=== PATIENT | male | born 1985 | race Two or more races ===

== ENCOUNTER 2018-08-10 10:25 | Day surgery (SDC) | payer OTHER ==
[2018-08-10] MEDS ORDERED: MIDAZOLAM 1 MG/ML 2 ML INJ ×3 (11:37)
[2018-08-10] MEDS ORDERED: FENTAnyl 50 MCG/ML VIAL (11:37)
== END 2018-08-10 14:37 | disposition home or self-care (01) ==
LOC: GIL 10:25
DX: R19.7 Diarrhea, unspecified (principal); K64.8 Other hemorrhoids; K64.4 Residual hemorrhoidal skin tags
CPT/HCPCS: 45380; 88305